=== PATIENT | male | born 1960 | race Caucasian/White ===

== ENCOUNTER 2021-09-09 09:21 | Outpatient (RCR) | payer OTHER | END 2021-09-16 | disposition still patient (30) | LOC: PT | DX: M25.561 Pain in right knee (principal); M25.562 Pain in left knee; M25.512 Pain in left shoulder; G89.29 Other chronic pain ==

== ENCOUNTER 2021-09-18 08:33 | Outpatient (RCR) | payer OTHER | END 2021-10-16 | LOC: PT | DX: M25.561 Pain in right knee (principal); M25.562 Pain in left knee; G89.29 Other chronic pain; M25.512 Pain in left shoulder ==